=== PATIENT | female | born 1990 | race Hispanic/Latino ===

== ENCOUNTER 2017-10-17 20:18 | Inpatient (IN) | payer MEDICAID ==
[~2017-10-17] VITALS: Ht 167.6 cm; Wt 68.5 kg
[2017-10-17 21:03] LABS: APPEARANCE,URINE CLOUDY (CLEAR); BILIRUBIN,URINE NEGATIVE (NEGATIVE); COLOR,URINE YELLOW (YELLOW); GLUCOSE, URINE (UA) NEGATIVE (NEGATIVE); KETONES,URINE NEGATIVE (NEGATIVE); LEUKOCYTE ESTERASE ,URINE LARGE (NEGATIVE); NITRATE,URINE POSITIVE (NEGATIVE); OCCULT BLOOD,URINE TRACE-LYSED (NEGATIVE); PH,URINE 6.5 (5.0-8.0); PROTEIN,URINE TRACE (NEGATIVE)
[2017-10-17 21:55] LABS: BACTERIA,URINE Moderate /HPF (None Seen); SQUAMOUS EPITHELIAL CELL,UR Rare /LPF (0-2); WBC,URINE 51-100 /HPF (0-1)
[2017-10-17] MEDS ORDERED: AMPICILLIN 2GM+NS 100ML 100 ML IV ONE (22:12)
[2017-10-17] MEDS ORDERED: LACTATED RINGERS 1000ML 1,000 ML IV ONE (22:12)
[2017-10-17] MEDS: LACTATED RINGERS 1000ML 1,000 ML IV PRN ×2 (22:19→23:38)
[2017-10-17] MEDS: AMPICILLIN 2GM+NS 100ML 100 ML IV SCH (22:19)
[2017-10-18] MEDS: AMPICILLIN 2GM+NS 100ML 100 ML IV SCH ×3 (04:03→22:01)
[2017-10-18] MEDS ORDERED: MAGNESIUM 4GM PREMIX 100ML 100 ML IV ONE (04:21)
[2017-10-18] MEDS ORDERED: MAGNESIUM 4GM PREMIX 100ML 100 ML IV SCH (04:30)
[2017-10-18] MEDS ORDERED: CALCIUM GLUCONATE 1 GM/10 ML VIAL IV PRN (04:30)
[2017-10-18] MEDS: MAGNESIUM SULFATE 1,000 ML IV PRN ×2 (04:47→23:46)
[2017-10-18 08:33] LABS: BASOPHILS % (AUTO) 0.1 % (0.0-5.0); EOSINOPHILS % (AUTO) 0.2 % (0.0-8.0); HEMATOCRIT 27.7 % (36-48); LYMPHOCYTES % (AUTO) 15.8 % (21.0-51.0); MEAN CORPUSCULAR HGB CONC 30.8 g/dL (32.0-36.0); MEAN CORPUSCULAR VOLUME 74.8 fL (79-99); NEUTROPHILS % (AUTO) 76.9 % (40.0-77.0); PLATELET COUNT (AUTO) 384 K/uL (130-400); RED CELL DISTRIBUTION WIDTH 19.8 % (11.0-15.5); WHITE BLOOD COUNT (AUTO) 13.7 K/uL (4.8-10.8)
[2017-10-18 08:45] LABS: AMPHET/METH SCREEN,URINE NEGATIVE (NEGATIVE); BARBITURATE SCREEN, URINE NEGATIVE (NEGATIVE); BENZODIAZEPINES SCREEN,URINE NEGATIVE (NEGATIVE); CANNABINOID SCREEN,URINE NEGATIVE (NEGATIVE); COCAINE SCREEN,URINE NEGATIVE (NEGATIVE); OPIATE SCREEN,URINE NEGATIVE (NEGATIVE); PHENCYCLIDINE SCREEN,URINE NEGATIVE (NEGATIVE)
[2017-10-18] MEDS: DEXAMETHASONE SOD PHOSPHATE 4 MG/ML 1ML VIAL IM SCH ×3 (09:18→22:02)
[2017-10-18] MEDS: LACTATED RINGERS 1000ML 1,000 ML IV PRN (10:19)
[2017-10-19] MEDS: DEXAMETHASONE SOD PHOSPHATE 4 MG/ML 1ML VIAL IM SCH ×5 (03:53→23:21)
[2017-10-19] MEDS: AMPICILLIN 2GM+NS 100ML 100 ML IV SCH ×3 (03:53→16:10)
[2017-10-19] MEDS: LACTATED RINGERS 1000ML 1,000 ML IV PRN ×2 (11:55→23:15)
[2017-10-19 12:26] VITALS: BP 131/89
[2017-10-19] MEDS ORDERED: B12/1TAB3 PO (12:33)
[2017-10-19] MEDS ORDERED: FERR-82 PO (12:33)
[2017-10-19] MEDS ORDERED: FOLI1TAB15 PO (12:33)
[2017-10-19] MEDS ORDERED: LEVO50TA11 PO (12:33)
[2017-10-19 17:17] VITALS: BP 121/66
[2017-10-19 19:55] VITALS: BP 109/63
[2017-10-19] MEDS ORDERED: WATER FOR INJECTION,STERILE 20 ML VIAL IJ SCH (21:00)
[2017-10-19] MEDS: AMPICILLIN 2 GM VIAL IV SCH ×2 (21:53→22:13)
[2017-10-19 23:18] VITALS: BP 98/51
[2017-10-20 02:54] VITALS: BP 105/48
[2017-10-20] MEDS ORDERED: AMPICILLIN 2GM+NS 100ML 100 ML IV ONE (04:56)
[2017-10-20] MEDS: AMPICILLIN 2 GM VIAL IV SCH (05:01)
[2017-10-20] MEDS: LACTATED RINGERS 1000ML 1,000 ML IV PRN ×2 (06:19→11:21)
[2017-10-20] MEDS ORDERED: AMPICILLIN 2GM+NS 100ML 100 ML IV SCH ×2 (07:15→11:00)
[2017-10-20 07:56] VITALS: BP 114/65
[2017-10-20 11:32] VITALS: BP 107/67
[2017-10-20] MEDS: DEXAMETHASONE SOD PHOSPHATE 4 MG/ML 1ML VIAL IM SCH (12:00)
== END 2017-10-20 14:05 | disposition home or self-care (01) | DRG 566 ==
LOC: EDH 20:18 → OBSVTOIN 20:32 → LDH 20:32 → WSH 10-19 12:06
DX: O23.13 Infections of bladder in pregnancy, third trimester (principal); D64.9 Anemia, unspecified; O99.013 Anemia complicating pregnancy, third trimester; Z28.21 Immunization not carried out because of patient refusal; Z3A.32 32 weeks gestation of pregnancy
CPT/HCPCS: 36415; 80305; 81001; 83735; 85025; 96360; 96361; A4218; J0290; J1100; J3475; J7120

== ENCOUNTER 2017-12-02 12:19 | Observation (INO) | payer MEDICAID ==
[~2017-12-02 12:19] MED LIST: B12/1TAB3 PO; FERR-82 PO; FOLI1TAB15 PO; LEVO50TA11 PO
[2017-12-02 13:11] LABS: APPEARANCE,URINE Clear (CLEAR); BILIRUBIN,URINE Negative (NEGATIVE); COLOR,URINE Yellow (YELLOW); GLUCOSE, URINE (UA) Negative (NEGATIVE); KETONES,URINE Negative (NEGATIVE); LEUKOCYTE ESTERASE ,URINE Moderate (NEGATIVE); NITRATE,URINE Negative (NEGATIVE); OCCULT BLOOD,URINE Small (NEGATIVE); PH,URINE 6.5 (5.0-8.0); PROTEIN,URINE Negative (NEGATIVE)
[2017-12-02 13:43] LABS: BACTERIA,URINE Rare /HPF (None Seen); RBC,URINE 0-1 /HPF (0-1); SQUAMOUS EPITHELIAL CELL,UR Few /HPF (0-2)
== END 2017-12-02 13:35 | disposition home or self-care (01) ==
LOC: EDH 12:19 → LDH 12:45
DX: O26.853 Spotting complicating pregnancy, third trimester (principal); O99.283 Endocrine, nutritional and metabolic diseases complicating pregnancy, third trimester; E03.9 Hypothyroidism, unspecified; Z3A.39 39 weeks gestation of pregnancy
CPT/HCPCS: 81001; 99285; G0378

== ENCOUNTER 2017-12-12 11:53 | Inpatient (IN) | payer MEDICAID ==
[2017-12-12] MEDS ORDERED: LACTATED RINGERS 1000ML 1,000 ML IV PRN (12:48)
[2017-12-12 13:22] LABS: HEMATOCRIT 37.3 % (36-48); MEAN CORPUSCULAR HEMOGLOBIN 29.9 pg (27.0-33.0); MEAN CORPUSCULAR HGB CONC 33.1 g/dL (32.0-36.0); MEAN CORPUSCULAR VOLUME 90.3 fL (79-99); PLATELET COUNT (AUTO) 223 K/uL (130-400); RED BLOOD CELL COUNT(AUTO) 4.14 MIL/uL (4.00-5.50); RED CELL DISTRIBUTION WIDTH 29.3 % (11.0-15.5); WHITE BLOOD COUNT (AUTO) 12.1 K/uL (4.8-10.8)
[2017-12-12 13:34] LABS: APPEARANCE,URINE Cloudy (CLEAR); BILIRUBIN,URINE Negative (NEGATIVE); COLOR,URINE Yellow (YELLOW); GLUCOSE, URINE (UA) Negative (NEGATIVE); KETONES,URINE Negative (NEGATIVE); LEUKOCYTE ESTERASE ,URINE Large (NEGATIVE); NITRATE,URINE Negative (NEGATIVE); OCCULT BLOOD,URINE Negative (NEGATIVE); PH,URINE 7.5 (5.0-8.0); PROTEIN,URINE Negative (NEGATIVE)
[2017-12-12 13:42] LABS: BACTERIA,URINE Rare /HPF (None Seen); RBC,URINE 0-1 /HPF (0-1)
[2017-12-12 13:43] LABS: SQUAMOUS EPITHELIAL CELL,UR Moderate /HPF (0-2)
[2017-12-12] MEDS ORDERED: EPHEDRINE SULFATE 50 MG/ML AMPULE IVP PRN (14:00)
[2017-12-12] MEDS ORDERED: ROPIVACAINE 0.2%200ML EPIDURAL 200 ML EP SCH (14:00)
[2017-12-12] MEDS ORDERED: NALOXONE HCL 0.4 MG/1 ML ML IV PRN (14:00)
[2017-12-12] MEDS ORDERED: LACTATED RINGERS 500 ML 500 ML IV PRN (14:00)
[2017-12-12] MEDS ORDERED: OXYTOCIN 10 USP UNITS/ML ONE ×2 (14:42→20:31)
[2017-12-12] MEDS ORDERED: OXYTOCIN 10 USP UNITS/ML 20 UNIT in LACTATED RINGERS 1000ML 1,000 ML IV SCH (14:45)
[2017-12-12] MEDS ORDERED: OXYTOCIN-LR 20 UNITS/1000 ML 1,000 ML IV SCH ×2 (15:30→19:15)
[2017-12-12] MEDS ORDERED: LIDOCAINE HCL 1% 20 ML VIAL ONE (15:50)
[2017-12-12] MEDS ORDERED: WITCH HAZEL 1 PAD TP PRN (19:15)
[2017-12-12] MEDS ORDERED: LANOLIN 30GM OINTMENT TP PRN (19:15)
[2017-12-12] MEDS ORDERED: HYDROCODONE/ACETAMINOPHEN 5/325 MG TAB PO PRN (19:15)
[2017-12-12] MEDS ORDERED: IBUPROFEN 800 MG TAB PO PRN (19:15)
[2017-12-12] MEDS ORDERED: BENZOCAINE/LANOLIN/ALOE VERA 60 ML AEROSOL TP PRN (19:15)
[2017-12-12] MEDS ORDERED: ACETAMINOPHEN 325 MG TAB PO PRN (19:15)
[2017-12-12] MEDS ORDERED: LACTATED RINGERS 1000ML 1,000 ML IV ONE (20:31)
[2017-12-12] MEDS: DOCUSATE SODIUM 100 MG CAP PO SCH (20:41)
[2017-12-12 22:20] VITALS: BP 132/82
[2017-12-13 04:37] VITALS: BP 114/74
[2017-12-13 07:34] VITALS: BP 118/67
[2017-12-13 07:35] LABS: HEPATITIS Bs ANTIGEN SCREEN P Negative (Negative)
[2017-12-13] MEDS: DOCUSATE SODIUM 100 MG CAP PO SCH (09:51)
[2017-12-13] MEDS: IBUPROFEN 600 MG TABLET PO PRN ×3 (09:52→15:54)
[2017-12-13 11:23] VITALS: BP 107/66
[2017-12-13 15:35] VITALS: BP 123/53
[2017-12-13] MEDS ORDERED: DIPH,PERTUSS(ACELL),TET VAC/PF 0.5 ML VIAL IM ONE (17:20)
== END 2017-12-13 20:20 | disposition home or self-care (01) | DRG 560 ==
LOC: EDH 11:53 → OBSVTOIN 12:03 → WSH 12:03 → LDH 13:39 → WSH 22:20
PROVIDERS: ADMIT Specialist; ATTEND Specialist
PROC: 0W8NXZZ Division of Female Perineum, External Approach (ICD-10-PCS; principal; 2017-12-12)
PROC: 10E0XZZ Delivery of Products of Conception, External Approach (ICD-10-PCS; 2017-12-12)
PROC: 3E0R3BZ Introduction of Anesthetic Agent into Spinal Canal, Percutaneous Approach (ICD-10-PCS; 2017-12-12)
PROC: 00HU33Z Insertion of Infusion Device into Spinal Canal, Percutaneous Approach (ICD-10-PCS; 2017-12-12)
PROC: 10907ZC Drainage of Amniotic Fluid, Therapeutic from Products of Conception, Via Natural or Artificial Opening (ICD-10-PCS; 2017-12-12)
PROC: 3E0234Z Introduction of Serum, Toxoid and Vaccine into Muscle, Percutaneous Approach (ICD-10-PCS; 2017-12-12)
DX: O77.0 Labor and delivery complicated by meconium in amniotic fluid (principal); Z23 Encounter for immunization; Z37.0 Single live birth; Z3A.40 40 weeks gestation of pregnancy
CPT/HCPCS: 36415; 81001; 85027; 86592; 86850; 86900; 86901; 87340; 90715; A4314; A4606; J2590; J7120

== ENCOUNTER 2023-08-20 18:22 | Observation (INO) | payer MEDICAID ==
[~2023-08-20] VITALS: Ht 167.6 cm; Wt 91.6 kg
[2023-08-20 18:32] VITALS: BP 130/70; PULSE 120; RESP 16
[2023-08-20 19:15] LABS: APPEARANCE,URINE SL CLOUDY (CLEAR); BILIRUBIN,URINE NEGATIVE (NEGATIVE); COLOR,URINE YELLOW (YELLOW); GLUCOSE, URINE (UA) NEGATIVE (NEGATIVE); KETONES,URINE NEGATIVE (NEGATIVE); LEUKOCYTE ESTERASE ,URINE TRACE Leu/uL (NEGATIVE); NITRATE,URINE NEGATIVE (NEGATIVE); OCCULT BLOOD,URINE NEGATIVE (NEGATIVE); PROTEIN,URINE NEGATIVE (NEGATIVE)
[2023-08-20 19:18] LABS: ADD UA MICROSCOPIC YES
[2023-08-20 19:27] LABS: BACTERIA,URINE FEW /HPF (None Seen); MUCUS,URINE RARE LPF (None Seen); SQUAMOUS EPITHELIAL CELL,UR MOD /HPF (0-2); YEAST,URINE BUDDING RARE /HPF (None Seen)
== END 2023-08-20 20:00 | disposition home or self-care (01) ==
LOC: EDH 18:22 → LDH 18:23
PROVIDERS: ADMIT Obstetrics & Gynecology; ATTEND Obstetrics & Gynecology
DX: O26.893 Other specified pregnancy related conditions, third trimester (principal); R10.9 Unspecified abdominal pain; Z3A.36 36 weeks gestation of pregnancy
CPT/HCPCS: 87088; 81001; G0379; G0378